=== PATIENT | male | born 1970 | race Caucasian/White ===

== ENCOUNTER 2017-03-08 21:52 | Emergency (ER) | payer OTHER | END 2017-03-09 01:54 | disposition other institution (70) | LOC: ED 21:52 | DX: Z02.89 Encounter for other administrative examinations (principal); S51.852A Open bite of left forearm, initial encounter; I10 Essential (primary) hypertension; Z86.79 Personal history of other diseases of the circulatory system; W54.0XXA Bitten by dog, initial encounter; Y93.89 Activity, other specified; Y99.8 Other external cause status; Y92.89 Other specified places as the place of occurrence of the external cause ==

== ENCOUNTER 2017-03-08 21:52 | Emergency (ER) | payer SELFPAY ==
[~2017-03-08] VITALS: Ht 182.9 cm; Wt 99.8 kg
[2017-03-08 22:15] VITALS: Ht 182.9 cm; Wt 99.8 kg
[2017-03-09 01:54] VITALS: BP 112/80
== END 2017-03-09 01:54 | disposition other institution (70) ==
LOC: ED 21:52
DX: S51.852A Open bite of left forearm, initial encounter (principal); I10 Essential (primary) hypertension; Z86.79 Personal history of other diseases of the circulatory system; W54.0XXA Bitten by dog, initial encounter; Y93.89 Activity, other specified; Y99.8 Other external cause status; Y92.89 Other specified places as the place of occurrence of the external cause
CPT/HCPCS: 90715; J0295; J1170; J7040